=== PATIENT | female | born 1995 | race Caucasian/White ===

== ENCOUNTER → 2019-11-27 10:40 | Outpatient (CLI) | payer OTHER, MEDICAID, SELFPAY ==
--- NOTE | 2019-11-27 | DI.CT.S_ITS ---
PROCEDURE: CT CHEST HIGH RESOLUTION INDICATIONS: TUBEROUS SCLEORIS TECHNIQUE: Noncontrast 1.0 and 5.0 mm thick contiguous axial sections from the pulmonary apex to the posterior costophrenic angles, with 7 mm thick coronal and sagittal MIP reformats. 1 mm thick dynamic expiratory images acquired through the upper, mid, and lower lungs. 1.0 mm thick axial sections acquired from the jaxon to the posterior costophrenic angles in the prone end-inspiration position. For radiation dose reduction, the following was used: automated exposure control, adjustment of mA and/or kV according to patient size. COMPARISON: None. FINDINGS: Image quality: Excellent. Lungs: No air-trapping on dynamic images. Multiple very tiny nodules associated with the major and minor fissures bilaterally. 3 mm nodule subpleural lateral left lower lobe and a few other subpleural and pleural-based nodules in the posterior left lower lobe. There are no cysts, masses, suspicious groundglass opacities. The airways are patent, normal caliber, and without peribronchial thickening. Pleura: No pleural effusions or pneumothorax. Mediastinum: Heart size is normal. No visible fat deposition in the myocardium. No pericardial effusion. No mediastinal or hilar adenopathy. Thymic tissue is present. Thoracic aorta and central pulmonary arteries are normal in size. Esophagus is normal in caliber. Bones and chest wall: Osseous structures demonstrate numerous small rounded sclerotic lesions in the vertebral bodies including posterior elements. No vertebral body compression fractures. Normal thyroid gland. Abdomen: Visualized upper abdominal solid organs and bowel loops appear normal. IMPRESSION: 1. 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 No evidence of cystic disease or chylothorax. 2. Osseous manifestation of tuberous sclerosis in the vertebral bodies. Dictated by: Flora Johnson M.D. on 11/27/2019 at 12:08 Approved by: Flora Johnson M.D. on 11/27/2019 at 12:23
== END ==
PROVIDERS: Referring Provider Specialist; Visit Provider Specialist
DX: Q85.1 Tuberous sclerosis (principal)
CPT/HCPCS: 71250